=== PATIENT | male | born 1975 | race Caucasian/White ===

== ENCOUNTER 2022-12-14 11:05 | Emergency (ER) | payer SELFPAY ==
[~2022-12-14] VITALS: Ht 170.2 cm; Wt 81.8 kg
[2022-12-14] MEDS ORDERED: BACITRACIN 0.9 GM PACKET OINTMENT TP ONE (13:15)
[2022-12-14 13:20] VITALS: BP 127/87
[2022-12-14] MEDS ORDERED: PERTUSS(ACELL),DIPH,TET VAC/PF 0.5 ML SYRINGE IM. ONE (13:30)
== END 2022-12-14 13:42 | disposition home or self-care (01) ==
LOC: EMS 11:16
DX: S60.946A Unspecified superficial injury of right little finger, initial encounter (principal); S60.051A Contusion of right little finger without damage to nail, initial encounter; Z98.890 Other specified postprocedural states; X58.XXXA Exposure to other specified factors, initial encounter; Y93.89 Activity, other specified; Y92.89 Other specified places as the place of occurrence of the external cause; Y99.8 Other external cause status
CPT/HCPCS: 90471; 90715; 99283